=== PATIENT | female | born 1990 | race Caucasian/White ===

== ENCOUNTER 2022-05-15 02:58 | Emergency (ER) | payer MEDICAID ==
[~2022-05-15] VITALS: Ht 165.1 cm; Wt 63.0 kg
[2022-05-15 03:25] VITALS: BP 128/70
[2022-05-15 05:27] LABS: HEPATITIS B SURFACE ANTIGEN NEGATIVE
== END 2022-05-15 05:54 | disposition home or self-care (01) ==
LOC: ER 03:06
DX: Z77.21 Contact with and (suspected) exposure to potentially hazardous body fluids (principal)
CPT/HCPCS: 36415; 84460; 86703; 86705; 86709; 86803; 87340; 99283; Z7610